=== PATIENT | male | born 1935 | race Caucasian/White ===

== ENCOUNTER 2021-02-14 08:40 | Outpatient (CLI) | payer MEDICARE, BC ==
[~2021-02-14] VITALS: Ht 177.8 cm; Wt 75.5 kg
[2021-02-14 09:26] VITALS: BP 131/80; PULSE 70; TEMP 98.3
[2021-02-14] MEDS ORDERED: MOTRIN 600600 MG/TAB PO (09:42)
[2021-02-14] MEDS ORDERED: VITAMIN D250 MCG PO (09:42)
[2021-02-14] MEDS ORDERED: ARICEPT10 MG PO (09:43)
[2021-02-14] MEDS ORDERED: PEPCID 20MG TAB20 MG PO (09:44)
[2021-02-14] MEDS ORDERED: ASPIRIN E.C. 8181 MG PO (09:45)
[2021-02-14] MEDS ORDERED: ZESTRIL 5MG5 MG PO (09:45)
[2021-02-14] MEDS ORDERED: NAMENDA 10MG TA10 MG PO (09:45)
[2021-02-14] MEDS ORDERED: VITAMIN C500 MG PO (09:46)
[2021-02-14] MEDS ORDERED: PRAVACHOL10 MG PO (09:46)
[2021-02-14] MEDS ORDERED: SPIRIVA RE2.5 MCG/Ac IH (09:47)
[2021-02-14 10:15] VITALS: BP 110/70; PULSE 79
[2021-02-14] MEDS ORDERED: CEPHALEXIN500 M1 PO (10:16)
[2021-02-14 10:30] VITALS: BP 122/76; PULSE 79
--- NOTE | 2021-02-14 11:00 | NUR ---
DC instructions reviewed with pt and son, both express understanding. Dressing to loop insertion site remains clean, dry and intact. Pt assisted out to son's car by wheelchair with all belongings.
== END 2021-02-14 11:00 | disposition home or self-care (01) ==
LOC: COL.CAR 08:40
DX: R55 Syncope and collapse (principal); I25.10 Atherosclerotic heart disease of native coronary artery without angina pectoris; I10 Essential (primary) hypertension; J44.9 Chronic obstructive pulmonary disease, unspecified; I08.0 Rheumatic disorders of both mitral and aortic valves; I49.3 Ventricular premature depolarization
CPT/HCPCS: C1764